=== PATIENT | male | born 1970 | race Hispanic/Latino ===

== ENCOUNTER 2020-07-15 11:48 | Emergency (ER) | payer OTHER, SELFPAY ==
[2020-07-15] MEDS ORDERED: Morphine 4 MG/ML VIAL ONE (12:14)
[2020-07-15] MEDS ORDERED: Ondansetron PF 4 MG/2 ML Vial ONE (12:14)
[2020-07-15 12:22] LABS: #Basophils 0.1 thou/uL (0.0-0.2); #Eosinphils 0.3 thou/uL (0.0-0.7); #Lymphocytes 2.5 thou/uL (1.20-3.40); #Monocytes 0.5 thou/uL (0.11-0.59); #Neutrophils 8.6 thou/uL (1.40-6.50); %Basophils 0.8 % (0.0-1.0); %Eosinophils 2.4 % (0.0-10.0); %Lymphocytes 21.1 % (21.0-51.0); %Monocytes 4.5 % (0.0-10.0); %Neutrophils 71.3 % (42.0-75.0); Hemoglobin 16.2 g/dL (12.0-16.0); Mean Corpuscular HGB CONC 32.8 g/dL (32.0-36.0); Mean Corpuscular Hemoglobin 30.5 pg (27.0-31.0); Mean Corpuscular Volume 93.1 fL (78.0-98.0); Mean Platelet Volume 7.4 fL (7.4-10.4); Platelet Count 230 thou/uL (130-400); RBC Distribution Width 11.8 % (11.5-14.5); Red Blood Cell (RBC) Count 5.31 mill/uL (4.20-5.40)
[2020-07-15 12:28] LABS: INR-International Normal Ratio 0.9; Prothrombin Time 11.8 sec (12.0-14.7)
[2020-07-15 12:39] LABS: ALT (SGPT) 92 U/L (8-55); AST (SGOT) 32 U/L (5-34); Albumin 4.6 g/dL (3.5-5.0); Alkaline Phosphatase 65 U/L (40-110); Anion Gap 18 mmol/L (10-20); BUN (Urea Nitrogen) 16 mg/dL (7.0-18.7); Bilirubin, Total 0.4 mg/dL (0.2-1.2); Calc. Creatinine Clearance 0 mL/min (70-130); Calcium 8.9 mg/dL (7.8-10.44); Carbon Dioxide 20 mmol/L (22-29); Chloride 107 mmol/L (98-107); Estimated GFR-MDRD 72; Globulin 2.6 g/dL (2.4-3.5); Glucose 174 mg/dL (70-105); Potassium 3.9 mmol/L (3.5-5.1); Protein, Total 7.2 g/dL (6.0-8.3); Sodium 141 mmol/L (136-145)
--- NOTE | 2020-07-15 12:59 | RAD ---
Exam: XR Hip Rt 2-3 View HISTORY: Right hip pain. Tree fell on patient. COMPARISON: None FINDINGS: No acute fracture, dislocation, or other acute osseous abnormality is identified. IMPRESSION: No acute osseous abnormality is identified.
--- NOTE | 2020-07-15 13:01 | RAD ---
LEFT HAND 3 VIEWS: HISTORY: Hand pain, tree fell on him FINDINGS: There is comminuted fracture involving the distal aspect of the distal phalanx of the thumb with disp laced fragments. There is an acute comminuted fracture involving the neck of the second metacarpal without significant displacement. A lucency is seen in the base of the proximal phalanx of the ring finger/fourth digit. Clinical corre lation is recommended for fracture.
--- NOTE | 2020-07-15 13:04 | RAD ---
Exam: XR Elbow Rt 4 View STANDARD HISTORY: Right elbow pain after tree fell on patient. COMPARISON: None FINDINGS: Subcutaneous soft tissue swelling is seen involving the lateral and dorsal lateral aspect of the righ t elbow. A true lateral projection of the right elbow was not obtained which does limit evaluation. This also limits evaluation for a joint effusion. Provided images do not demonstrate definite displaced fracture, and there is no dislocation involving the right elbow. Mild degenerative changes are seen i nvolving the elbow. IMPRESSION: 1 True lateral view right elbow was not obtained which does limit evaluation. Joint effusion is unabl e to be evaluated given lack of true lateral projection right elbow. No obvious displaced fracture is seen. True lateral view is recommended for further evaluation if the patient is able to properly p osition right elbow. 2. Subcutaneous soft tissue swelling.
[2020-07-15] MEDS ORDERED: Lidocaine 1% w/Epinephrine 1:100K 20 ML VIAL ONE (13:07)
[2020-07-15] MEDS ORDERED: Bupivacaine HCl 0.5%/Epinephrine 1:200,000/PF 30 ml Vial ONE (13:08)
--- NOTE | 2020-07-15 13:45 | RAD ---
Exam:Right elbow 2 views HISTORY: Pain COMPARISON: None FINDINGS: Preserved joint spaces. No joint effusion. No fracture or malalignment. No arthritic change . IMPRESSION: No acute abnormality. No significant change.
[2020-07-15] MEDS ORDERED: Boostrix 0.5 ML VIAL ONE (14:15)
[2020-07-15] MEDS ORDERED: Amoxicillin/Potassium Clav 875 MG TAB ONE (14:15)
== END 2020-07-15 14:38 | disposition home or self-care (01) ==
LOC: EDSEX 11:48 → MADERS 11:48
DX: S62.522A Displaced fracture of distal phalanx of left thumb, initial encounter for closed fracture (principal); S62.361A Nondisplaced fracture of neck of second metacarpal bone, left hand, initial encounter for closed fracture; S70.11XA Contusion of right thigh, initial encounter; S50.01XA Contusion of right elbow, initial encounter; E11.9 Type 2 diabetes mellitus without complications; I10 Essential (primary) hypertension; W20.8XXA Other cause of strike by thrown, projected or falling object, initial encounter
CPT/HCPCS: 64450; 80053; 85025; 85610; 90471; 90715; 96374; 96375; J0670; J2270; J2405

== ENCOUNTER 2021-03-13 13:11 | Outpatient (CLI) | payer SELFPAY | END 2021-03-13 13:12 | disposition home or self-care (01) | LOC: MADULT 13:11 | PROVIDERS: ATTEND Family Medicine | DX: M79.89 Other specified soft tissue disorders (principal) | CPT/HCPCS: 76999 ==